=== PATIENT | female | born 1955 | race African-American/Black ===

== ENCOUNTER → 2017-03-08 | Outpatient (CLI) | payer BC, OTHER ==
[~2017-03-08] MED LIST: GLIPIZIDE ER10 MG PO; GLUCOPHAGE1000 MG PO; GLUCOTROL5 MG; HYDROCODONE-AP1 EAC6 PO; IBUPROFEN 600600 M1 PO; PRAVASTATIN SOD40 MG PO; PRINZIDE 20-121 EACH; PROVENTIL HFA6.7 G1 INH; QNASL8.7 GM INH; QVAR HFA 440 MCG/UN1; ZESTORETIC 20-1 EAC3 PO
== END ==
LOC: RAD 08:33
DX: Z12.31 Encounter for screening mammogram for malignant neoplasm of breast (principal)

== ENCOUNTER → 2018-06-19 | Outpatient (CLI) | payer BC, OTHER | LOC: RAD 14:19 | DX: Z12.31 Encounter for screening mammogram for malignant neoplasm of breast (principal) ==

== ENCOUNTER → 2018-06-26 | Outpatient (CLI) | payer BC, OTHER | LOC: RAD 01:18 | DX: N63.13 Unspecified lump in the right breast, lower outer quadrant (principal); R92.0 Mammographic microcalcification found on diagnostic imaging of breast ==

== ENCOUNTER → 2018-07-07 | Outpatient (CLI) | payer BC, OTHER ==
[2018-07-07 12:55] LABS: CREATININE 1.2 mg/dL (0.6-1.0)
== END ==
LOC: MRI 10:03
PROVIDERS: Internal Medicine Interventional Cardiology
DX: C50.511 Malignant neoplasm of lower-outer quadrant of right female breast (principal); N63.23 Unspecified lump in the left breast, lower outer quadrant

== ENCOUNTER 2018-09-19 05:21 | Day surgery (SDC) | payer BC ==
[~2018-09-19] VITALS: Ht 152.4 cm; Wt 86.2 kg
[~2018-09-19 05:21] MED LIST changes: +AMLODIPINE BESY10 MG PO; +BASAGLAR K100 UNIT/1 SUBQ; +HAIR, SKIN & N1 EAC2 PO; +HUMALOG KW200 UNIT/1 SUBQ; +LISINOPRIL10 MG PO; +PRAVASTATIN SOD80 MG PO; +UNICOMPLEX M TA1 TA1 PO; +VITAMIN D1000 UNI1 PO
[2018-09-19 11:18] LABS: CALCIUM 10.1 mg/dL (8.5-10.1); CREATININE 0.8 mg/dL (0.6-1.0); POTASSIUM 3.9 mmol/L (3.5-5.1)
[2018-09-19 11:24] LABS: ALBUMIN 3.8 g/dL (3.4-5.0); TOTAL BILIRUBIN 0.4 mg/dL (<0.1-1.0); TOTAL PROTEIN 8.2 g/dL (6.4-8.2)
[2018-09-19 12:30] VITALS: BP 162/90
[2018-09-19] MEDS ORDERED: NORCO 5-325 TA1 EACH PO (13:48)
[2018-09-19 14:12] VITALS: BP 162/90
--- NOTE | 2018-10-18 12:06 | H ---
[facility] [address] HISTORY AND PHYSICAL Name: HUDSON LINTON Room #: DEP [facility]..#: [id number] Admission: 09/19/18 ������������������ Attend Phys: Ilir Mehta MD Discharge: 09/19/18 ������������������ Date of : 59 Report #: [id number] THIS REPORT FOR: //name// CC: Ilir Hickman PREOPERATIVE DIAGNOSIS: Recently diagnosed right breast cancer, here for Port-A-Cath placement to facilitate chemotherapy. HISTORY OF PRESENT ILLNESS: The patient is a 63-year-old who was recently diagnosed with multifocal right breast cancer with lymph node involvement. The patient had 4/17 lymph nodes involved. She is stage T2 N2. The patient is recommended to undergo chemotherapy. She is here for port placement. 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 Multifocal disease. She had several tumors in the breast. This was seen on preoperative MRI. PAST MEDICAL HISTORY: The patient has a history of high blood pressure, diabetes type 2, stage 3 chronic kidney disease, anemia history. Moderate obesity. MEDICATIONS: Amlodipine, insulin 10 units, lisinopril, pravastatin. ALLERGIES: She is not allergic to anything. FAMILY HISTORY: No family history of cancer. SOCIAL HISTORY: The patient does not smoke, does not drink. REVIEW OF SYSTEMS: The patient has recovered well from the breast surgery. She did have reconstruction. No shortness of breath, chest pain, palpitations, numbness, weakness. PHYSICAL EXAMINATION: GENERAL: Elderly female in no acute distress. HEENT: Pupils react to light. Extraocular muscles are intact. NECK: Soft and supple, no masses. Breast is healing well. No swelling in the extremity. LUNGS: Clear to auscultation. HEART: Regular rate and rhythm. No murmur or gallop. ABDOMEN: Soft, nondistended, nontender. EXTREMITIES: No cyanosis, clubbing or edema. NEUROLOGIC: Motor and sensory exam normal. IMPRESSION: The patient is a 63-year-old with a recently diagnosed right breast [facility] [address] [place] [address] HISTORY AND PHYSICAL Name: HUDSON LINTON Alexey Room #: DEP [facility]..#: [id number] Admission: 09/19/18 ������������������ Attend Phys: Ilir Mehta MD Discharge: 09/19/18 ������������������ Date of : 59 Report #: [id number] cancer. She is here for a right Port-A-Cath placement. We will place it on the left subclavian site. The patient does have fairly advanced disease with multifocality, node positive. The patient will undergo Port-A-Cath placement. Procedure is discussed. Risk of bleeding, infection, vein, clot and vein thrombosis, pneumothorax was discussed. The patient wishes to proceed. ��������������������������������������������� <ELECTRONICALLY SIGNED> ���������������������������������������� By: Ilir Mehta MD ��������������������������������������������� 10/18/18 1206 0918 8 Ilir Mehta MD /cammy
--- NOTE | 2018-10-18 12:07 | O ---
[facility] [address] OPERATIVE REPORT Name: HUDSON LINTON Room #: DEP [facility]..#: [id number] Admission: 09/19/18 ������������������ Attend Phys: Ilir Mehta MD Discharge: 09/19/18 ������������������ Date of : 59 Report #: [id number] THIS REPORT FOR: //name// CC: Ilir Hickman MD DATE OF SERVICE: 09/19/2018 PREOPERATIVE DIAGNOSIS: Recently diagnosed right breast cancer, needs chemotherapy, here for Port-A-Cath placement to facilitate chemotherapy. POSTOPERATIVE DIAGNOSIS: Recently diagnosed right breast cancer, needs chemotherapy, here for Port-A-Cath placement to facilitate chemotherapy. PROCEDURE PERFORMED: Placement of Port-A-Cath via left subclavian approach. ANESTHESIA: IV sedation with 0.25% Marcaine. SURGEON: Ilir Mehta M.D. COMPLICATIONS: None. ESTIMATED BLOOD LOSS: 5 mL PROCEDURE NOTE: With the patient under IV sedation, timeout was performed. The left chest and neck was prepped and draped in sterile fashion. Preoperative IV antibiotic was administered. Marcaine 0.25% was used to anesthetize the skin underneath the clavicle. A skin incision about 2.5 cm was made underneath the left clavicle. Dissection was carried down to the pectoralis fascia. Pocket was made inferiorly over the pectoralis fascia. The port looked like is set in the pocket well. The patient was placed in Trendelenburg position. The left subclavian vein was found on the second attempt. Wire was placed without difficulty. On fluoroscopy, the wire was down into the superior vena cava in the right direction. The patient was then taken out of Trendelenburg. The port was then attached to the catheter. The length of the catheter was approximately 19 cm in length. The catheter was fitted to the port, locked in place with a special locking plastic device. The port and the catheter were flushed without difficulty. Dilator was then placed over the wire. Peel-Apart sheath was then placed over the dilator. The Peel-Apart sheath and the dilator were then placed over the wire without difficulty. The wire and dilator were removed. The catheter was then placed inside the Peel-Apart sheath. The sheath was peeled apart leaving the catheter into the vein. The port was then placed inside the pocket. Antibiotic irrigation was performed. Fluoroscopy showed good placement. The port was sewn to the fascial level with 2-[address] [facility] [place] [address] [place] [address] OPERATIVE REPORT Name: HUDSON LINTON Room #: DEP [facility]#: [id number] Admission: 09/19/18 ������������������ Attend Phys: Ilir Mehta MD Discharge: 09/19/18 ������������������ Date of : 59 Report #: [id number] Subcutaneous tissue was closed with 3-0 PDS. Skin was closed with 5-0 PDS. The port was accessed. I did have difficulty drawing blood from it. I tried couple attempts, pretty sure it was in the port. I decided to go ahead and open the wound up. It turned out at the port junction to the catheter must have been kinked. I went ahead and removed the port from the pocket and then in enlarged the pocket dissecting it inferiorly. This allowed the port to sit a little further distance away from the catheter entrance underneath the clavicle. The port was then sewn to the fascia with 2-0 Prolene. Antibiotic irrigation was performed. Subcutaneous was closed with 3-0 PDS. Skin was closed with 5-0 PDS. The port was then accessed. Johns needle was used. At this time, the blood was able to be drawn into the syringe. The port also flushed easily. The needle was then removed. Steri-Strip, Telfa, OpSite used for dressing. The patient was awakened and taken to recovery room. ��������������������������������������������� <ELECTRONICALLY SIGNED> ���������������������������������������� By: Ilir Mehta MD ��������������������������������������������� 10/18/18 1207 2133 Ilir Mehta MD /nt
== END 2018-09-19 15:45 | disposition home or self-care (01) ==
LOC: OR 05:21 → TBA 05:22 → OR 11:17
PROVIDERS: Surgery
DX: Z45.2 Encounter for adjustment and management of vascular access device (principal); C50.911 Malignant neoplasm of unspecified site of right female breast; I12.9 Hypertensive chronic kidney disease with stage 1 through stage 4 chronic kidney disease, or unspecified chronic kidney disease; E11.22 Type 2 diabetes mellitus with diabetic chronic kidney disease; N18.3 Chronic kidney disease, stage 3 (moderate); E78.5 Hyperlipidemia, unspecified; J45.909 Unspecified asthma, uncomplicated; D64.9 Anemia, unspecified; E66.01 Morbid (severe) obesity due to excess calories; Z79.899 Other long term (current) drug therapy; Z79.4 Long term (current) use of insulin; Z68.37 Body mass index [BMI] 37.0-37.9, adult; Z98.890 Other specified postprocedural states
CPT/HCPCS: 50010; 50101; 50386; 50403; 51938; 56524; 56525; 62110; 62850; 70005

== ENCOUNTER 2019-11-29 19:10 | Inpatient (IN) | payer OTHER ==
[~2019-11-29] VITALS: Ht 152.4 cm; Wt 85.7 kg
[~2019-11-29 19:10] MED LIST changes: +NORCO 5-325 TA1 EACH PO
[2019-11-29 19:18] VITALS: BP 179/120
[2019-11-29] MEDS ORDERED: CRESTOR40 MG PO (19:34)
[2019-11-29] MEDS ORDERED: ARIMIDEX PO (19:35)
[2019-11-29] MEDS ORDERED: ZESTRIL20 MG PO (19:38)
[2019-11-29] MEDS ORDERED: CARVEDILOL25 MG PO (19:40)
[2019-11-29] MEDS ORDERED: NOVOLOG FL100 UNIT/M SUBQ (19:43)
[2019-11-29 21:00] LABS: ABSOLUTE NEUTROPHILS 3.9 thou/uL (1.4-8.2); EOSINOPHILS 2.4 % (0.0-3.0); HEMATOCRIT 41.5 % (37.0-47.0); HEMOGLOBIN 13.9 gm/dL (12.0-15.0); LYMPHOCYTES 32.3 % (24.0-44.0); MCH 27.5 pg (26.0-34.0); MCHC 33.5 g/dL (28.0-37.0); MCV 81.9 fL (80.0-100.0); MONOCYTES 6.9 % (1.0-8.0); PLATELET COUNT 230 thou/uL (150-400); POLYS 57.4 % (36.0-66.0); RBC 5.07 mil/uL (4.20-5.00); RDW 14.6 % (10.5-14.5); WBC 6.8 thou/uL (4.0-11.0)
[2019-11-29 21:10] LABS: CALCIUM 9.8 mg/dL (8.5-10.1); POTASSIUM 4.1 mmol/L (3.5-5.1)
[2019-11-29 21:20] LABS: MAGNESIUM 1.8 mg/dL (1.8-2.4); TROPONIN-I 0.07 ng/mL (<0.06)
[2019-11-29 23:16] VITALS: BP 165/118
[2019-11-30] VITALS (7 sets, daily range): BP systolic 133–192; BP diastolic 86–139
[2019-11-30 03:48] LABS: HEMOGLOBIN 13.9 gm/dL (12.0-15.0); MCH 27.3 pg (26.0-34.0); MCHC 33.2 g/dL (28.0-37.0); MCV 82.3 fL (80.0-100.0); RBC 5.1 mil/uL (4.20-5.00); RDW 14.6 % (10.5-14.5); WBC 6.5 thou/uL (4.0-11.0)
--- NOTE | 2019-11-30 04:03 | NUR ---
RECEIVED PATIENT AROUND 0300. PT STATED STABILITY AND ABSCENCE OF PAIN. PT WAS COUGHIN QUITE A BIT, NON PRODUCTIVELY. PT WAS ABLE TO AMBULATE SELF BACK AND FORTH WITH SOA. MOBILITY SHOULD BE MONITORED SHIFT BY SHIFT TO ADJUST DEPENDING ON SOA STATUS. PT'S BP WAS HIGH, CARVEDILOL, LISINOPRIL ADMINISTERED. PT PHONE DELIVERED BY ED SECURITY. IV WAS INFILTRATED UPON ARRIVAL SO NEW ONE WAS PLACED. PT WANTED TO SHOWER SO BED BATH SUPPLIES WERE PROVIDED. NO COMPLAINTS AT THIS TIME. WILL FOLLOW POC
[2019-11-30 04:04] LABS: CALCIUM 9.5 mg/dL (8.5-10.1); CREATININE 0.9 mg/dL (0.6-1.0); TROPONIN-I 0.09 ng/mL (<0.06)
--- NOTE | 2019-11-30 07:42 | EKG ---
[facility] [place] [address] ELECTROCARDIOGRAM REPORT Name: HUDSON LINTON Room #: 356-P ADM IN M.R.#: [id number] Admission: 11/29/19 Attend Phys: Piotr Minor MD Discharge: Date of : 59 Report #: [id number] THIS REPORT FOR: cc: Alvarez Hickman Steven F. DO Couchonnal, Luis F. 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 : 1955 Requested By: Greg Patrick Order Number: [id number] MD: Misha Kaye Measurements Intervals [place] Rate: 90 P: 45 WY: 159 QRS: -20 QRSD: 102 T: 61 QT: 411 QTc: 503 Interpretive Statements Sinus rhythm Probable left ventricular hypertrophy Prolonged QT interval Compared to ECG 04/16/2015 01:47:35 Prolonged QT interval now present T-wave abnormality no longer present Electronically Signed On 11-30-2019 7:41:18 CDT by Misha Kaye [email or web address] <ELECTRONICALLY SIGNED> By: Misha Kaye MD 11/30/19 0741 08 08 Misha Kaye MD /EPI
--- NOTE | 2019-11-30 12:01 | NUR ---
INITIAL ASSESSMENT: SW reviewed chart and spoke with nursing and attending physician. Pt was admitted from home due to dyspnea/pneumonia. Pt is currently in Enhanced Isolation to r/o COVID-19. SW spoke with pt via phone. Introduced role of SW. Pt is alert/orientated x 4. Pt reports she lives at home with her . 2-3 steps to enter the home. Pt states she has several steps to go downstairs in the basement to do laundry. Pt is able to navigate the steps. Prior to admission, pt was independent with ADLs. No use of DME. No hx of services or post-acute placement. Pt's PCP is Dr. Hickman. Plan is for pt to discharge home when medically stable pending COVID-19 results. SW is following to assist as needed with discharge planning.
--- NOTE | 2019-11-30 19:02 | NUR ---
Assumed patient care at 0715. Vital signs have been stable except for blood pressures and blood sugars; both of this have been in higher ranges without patient being symptomatic. Patient has been alert and oriented x's 4. She took a shower with stand-by assitance this afternoon. No shortness of breath noted. Patient noted to have a non-productive cough this evening. Respiratory Therapy contacted for Treatment. Patient has been up ad osmin to use the restroom, although she has been reminded to call nurse for stand-by assist. She is compliant with wearing her SCD's and all medications/treatments. No adverse effects related to IV Antibiotic Therapy. Will report to on-coming nurse.
--- NOTE | 2019-12-01 04:26 | NUR ---
Assumed pt care at 1900. Pt's A/OX4,VSS. Pt transferred by nurse from 3W @2200 via bed. Pt is up ad osmin and independent with ADLs. Denies pain on assessment. Does have a non productive cough,informed sputum cx still needed. LSCTA, denies SOA, HOB up. Pt started on Doxycycline IV @HS,c/o burning feeling rate turned down but pt reported she's never felt like that before and requested it be stopped completely and MD contacted for PO abts. IV not infiltrated and flushes w/o any complaints. Nona Alfaro notified of pt request,N.N.O stated that it will be addressed by the day MD. Resting quietly at this time w/o any distress noted,will continue to monitor pt. Call light/personal items within reach.
[2019-12-01 05:45] VITALS: BP 146/100
[2019-12-01 06:30] LABS: ABSOLUTE NEUTROPHILS 9.6 thou/uL (1.4-8.2); BASOPHILS 0.1 % (0.0-2.0); HEMATOCRIT 39.8 % (37.0-47.0); HEMOGLOBIN 13.1 gm/dL (12.0-15.0); LYMPHOCYTES 7.2 % (24.0-44.0); MCH 27.2 pg (26.0-34.0); MCV 82.5 fL (80.0-100.0); MONOCYTES 4.5 % (1.0-8.0); PLATELET COUNT 209 thou/uL (150-400); POLYS 88.2 % (36.0-66.0); RBC 4.82 mil/uL (4.20-5.00); RDW 14.5 % (10.5-14.5); WBC 10.9 thou/uL (4.0-11.0)
[2019-12-01 06:50] LABS: ANION GAP 10 mmol/L (7-16); BUN 28 mg/dL (7-18); CHLORIDE 99 mmol/L (98-107); CO2 24 mmol/L (21-32); CREATININE 1.1 mg/dL (0.6-1.0); GLUCOSE 335 mg/dL (74-106); MAGNESIUM 1.8 mg/dL (1.8-2.4); POTASSIUM 4.2 mmol/L (3.5-5.1); SODIUM 133 mmol/L (136-145); TROPONIN-I <0.06 ng/mL (<0.06)
[2019-12-01 07:20] VITALS: BP 154/100
--- NOTE | 2019-12-01 09:38 | 2DMMODE ---
[facility] [place] [address] 2 D/M-MODE ECHOCARDIOGRAM Name: HUDSON LINTON Alexey Room #: 439-P ADM IN M.R.#: [id number] Admission: 11/29/19 Attend Phys: Piotr Minor MD Discharge: Date of : 59 Report #: [id number] THIS REPORT FOR: cc: Alvarez Hickman,Alvarez Valdes,Anton Rebollar MD ~ APPROVED REPORT Study performed: 12/01/2019 08:41:18 EXAM: Comprehensive 2D, Doppler, and color-flow Echocardiogram Patient Location: Echo lab Room #: 439 Status: routine BSA: 1.83 HR: 90 bpm BP: 154/100 mmHg Rhythm: NSR Other Information Study Quality: Excellent Indications Dyspnea, rule out CHF. Hx: Cancer, HTN, HLP, DM. 2D Dimensions RVDd: 37.16 mm IVSd: 11.00 (7-11mm) LVOT Diam: 19.02 (18-24mm) LVDd: 58.00 mm PWd: 11.01 (7-11mm) Ascending Ao: 30.88 (22-36mm) LVDs: 50.85 (25-40mm) Aortic Root: 29.05 mm Volumes Left Atrial Volume (Systole) Single Plane 4CH: 71.53 mL Single Plane 2CH: 63.61 mL LA ESV Index: 39.00 mL/m2 Aortic Valve AoV Peak Landry.: 1.81 m/s AO Peak Gr.: 13.15 mmHg LVOT Max P.64 mmHg AO Mean Gr.: 7.75 mmHg AO V2 Mean: 1.35 m/s LVOT Max V: 0.95 m/s [facility] [address] [place] [address] 2 D/M-MODE ECHOCARDIOGRAM Name: HUDSON LINTON Alexey Room #: 439[facility] IN ..#: [id number] Admission: 11/29/19 Attend Phys: Piotr Minor MD Discharge: Date of : 59 Report #: [id number] AO V2 VTI: 33.09 cm RICKEY Vmax: 1.50 cm2 Mitral Valve E/A Ratio: 2.6 MV Decel. Time: 133.51 ms MV E Max Landry.: 1.13 m/s MV A Landry.: 0.43 m/s MV PHT: 38.72 ms IVRT: 76.12 ms Pulmonary Valve PV Peak Landry.: 0.63 m/s PV Peak Gr.: 1.61 mmHg Pulmonary Vein P Vein S: 0.57 m/s P Vein D: 0.99 m/s P Vein S/D Ratio: 0.58 Tricuspid Valve TR Peak Landry.: 2.94 m/s RAP Estimate: 10.00 mmHg TR Peak Gr.: 35.00 mmHg PA Pressure: 45.00 mmHg Left Ventricle Left ventricle is mildly dilated. There is global hypokinesis of the left ventricle. Borderline concentric left ventricular hypertrophy. Left ventricular systolic function is severely decreased. LVEF is 25%. Severe diastolic dysfunction is present (restrictive filling). Right Ventricle The right ventricle is normal size. Right ventricle is mildly hypokinetic. Atria Left atrium is moderately dilated. Right atrium is mildly dilated. Aortic Valve The aortic valve is normal in structure. Leaflets are mildly thickened and calcified. No aortic regurgitation is present. Probable mild aortic stenosis. Mitral Valve The mitral valve is normal in structure. Mild mitral regurgitation. [facility] [address] [place] [address] 2 D/M-MODE ECHOCARDIOGRAM Name: HUDSON LINTON Room #: 439-P ADM IN .R.#: [id number] Admission: 11/29/19 Attend Phys: Piotr Minor MD Discharge: Date of : 59 Report #: [id number] No evidence of mitral valve stenosis. Tricuspid Valve The tricuspid valve is normal in structure. Mild to moderate tricuspid regurgitation. Estimated PAP is 45mmHg. Pulmonic Valve The pulmonary valve is normal in structure. Mild pulmonic regurgitation. Great Vessels The aortic root is normal in size. The ascending aorta is normal in size. IVC is dilated and collapses <50% with inspiration. Pericardium There is no pericardial effusion. <Conclusion> Left ventricle is mildly dilated. Left ventricular systolic function is severely decreased. LVEF is 25%. Severe diastolic dysfunction is present (restrictive filling). Right ventricle is mildly hypokinetic. Left atrium is moderately dilated. Probable mild aortic stenosis. Mild mitral regurgitation. Mild to moderate tricuspid regurgitation. Estimated PAP is 45mmHg. <ELECTRONICALLY SIGNED> By: Anton Kong MD 12/01/1935 Anton Kong MD /INF
[2019-12-01 15:10] VITALS: BP 138/84
--- NOTE | 2019-12-01 16:09 | NUR ---
IT IS ANTICIPATED THAT PT WILL BE ABLE TO DISCHARGE HOME TO SELF CARE ONCE MEDICALLY STABLE. CM TO FOLLOW SHOULD ANY DC NEEDS ARISE.
[2019-12-01 19:00] VITALS: BP 134/92
--- NOTE | 2019-12-01 19:31 | NUR ---
Assumed care of pt at 0700. Pt a&ox4. Up ad osmin. Denies pain. Pt states she feels burning when antibiotic is infusing. Pt's blood sugar not controlled. Provider aware. Left chest port accessed. Director Of Residential Services consulted. Call light within reach. Report given to virgie QUEVEDO.
[2019-12-02 01:07] LABS: GLYCOHEMOGLOBIN (HGB A1C) 7.8 % (4.8-5.6)
--- NOTE | 2019-12-02 04:29 | NUR ---
Assumed pt care at 1900. A/OX4, VSS. Up ad osmin w/o any difficulties voiced. Denied pain on assessment. Pt has a left chest port a cath which is patent. Resting quietly w/o any distress noted at this time, will continue to monitor pt. Call light/personal items within reach.
[2019-12-02 04:47] LABS: CALCIUM 9.3 mg/dL (8.5-10.1); CREATININE 0.9 mg/dL (0.6-1.0)
[2019-12-02 05:06] LABS: HEMOGLOBIN 12.6 gm/dL (12.0-15.0); MCH 27.3 pg (26.0-34.0); MCHC 33.1 g/dL (28.0-37.0); MCV 82.6 fL (80.0-100.0); RBC 4.6 mil/uL (4.20-5.00); RDW 14.6 % (10.5-14.5); WBC 13.6 thou/uL (4.0-11.0)
[2019-12-02 08:30] VITALS: BP 142/93
[2019-12-02 15:15] VITALS: BP 123/74
--- NOTE | 2019-12-02 15:42 | NUR ---
CARE TEAM INDICATED THAT PT IS PROGRESSING TOWARD GOAL OF DISCHARGE. IT IS ANTICIPATED THAT PT WILL HAVE NO NEEDS ONCE MEDICALLY STABLE TO DISCHARGE.
--- NOTE | 2019-12-02 19:31 | NUR ---
Assumed pt care this am, pt is up ad osmin and coco to ambualte from bed to toilet with a steady gait. Blood sugar checks done with corresponding insulin given as per emar. Left chest port accessed and patent. Pt has a bm today and statinh prune juice helped. Pain on her little finger on the left was managed with medication. POC followed, medication and diet are well tolerated. No signs or verbalizatons of distress have been noted. Endorsed to the night nurse.
[2019-12-02 20:10] VITALS: BP 126/79
--- NOTE | 2019-12-03 05:47 | NUR ---
Assumed pt care at 1900. A/OX4, VSS. Up ad osmin w/o distress. Denies pain on assessment. Pt had a shower at without any issues reported. Left chest port patent. Pt encouraged to call for help as needed. Call light/personal items within reach.
[2019-12-03 07:52] VITALS: BP 149/99
--- NOTE | 2019-12-03 10:23 | HC ---
[facility] [place] [address] CONSULTATION Name: HUDSON LINTON Room #: 439-P ADM IN M.R.#: [id number] Admission: 11/29/19 Attend Phys: Piotr Minor MD Discharge: Date of : 59 Report #: [id number] THIS REPORT FOR: cc: Alvarez Hickman,Ginette Carrasco MD ~ CC: Piotr Hickman DATE OF SERVICE: 12/01/2019 ENDOCRINE CONSULTATION NOTE CONSULTING PHYSICIAN: Dr. Jamil. REASON FOR CONSULTATION: Uncontrolled type 2 diabetes mellitus. HISTORY OF PRESENT ILLNESS: This is a 64-year-old female patient whose medical background is significant for type 2 diabetes mellitus, hypertension, hyperlipidemia as well as breast cancer. The patient presented 2 days ago after progressive shortness of breath, tiredness and fatigue. The patient was admitted for the issue of pneumonia and ruled out for COVID-19. She is known to have type 2 diabetes mellitus and was diagnosed first about 5 years ago. She is currently maintained on a regimen of Lantus insulin 20 units q.p.m. and Humalog insulin 7 units t.i.d. a.c. She reports that her blood glucose values are typically in the mid to high 100 mg/dL range with infrequent excursions over 200 mg/dL. She does not have frequent or severe hypoglycemia that she recalls. The patient is not known to have diabetic retinopathy, but does have intermittent difficulties with numbness and tingling in both hands and feet. She believes she has a degree of renal insufficiency, but is not aware of issues pertaining to coronary artery disease. The patient's past medical history is also noted for hypertension and hyperlipidemia. REVIEW OF SYSTEMS: CONSTITUTIONAL: Fatigue, tiredness, but no fever or chills or body weight changes. HEENT: Negative for sore throat, sinus pain or ear drainage. PULMONARY: Shortness of breath, cough, but not hemoptysis. CARDIAC: Negative for chest pain, palpitations, syncope or presyncope. GASTROINTESTINAL: Negative for abdominal pain, nausea, vomiting or changes in bowel movement frequency. NEUROLOGY: Negative for loss of consciousness, seizure activity or frequent severe headaches, but noted for baseline diabetic neuropathy. [address] [address] CONSULTATION Name: HUDSON LINTON Alexey Room #: 439-P [facility] IN ..#: [id number] Admission: 11/29/19 Attend Phys: Piotr Minor MD Discharge: Date of : 59 Report #: [id number] PSYCHIATRIC: Negative for delusions or hallucinations, otherwise review of systems noncontributory other than those mentioned in HPI. PAST MEDICAL HISTORY: 1. Type 2 diabetes mellitus as noted above. 2. Hypertension. 3. Hyperlipidemia. 4. Breast cancer diagnosed in 2018, status post chemotherapy, status post radiation therapy. 5. Osteoarthritis. OUTPATIENT MEDICATIONS: Include Lantus insulin 20 units q.p.m., Humalog insulin 7 units t.i.d. a.c., lisinopril 10 mg daily, pravastatin 80 mg daily, amlodipine 10 mg daily, multivitamin daily, Arimidex which was held off a few weeks ago, carvedilol 25 mg b.i.d. ALLERGIES: No known drug allergies. FAMILY HISTORY: Noncontributory. SOCIAL HISTORY: She is . She has 7 children. Denies use of tobacco, alcohol or illicit drugs. She has recently retired. PHYSICAL EXAMINATION: GENERAL: Pleasant -Northern Irish female patient who is not in apparent pain or distress. VITAL SIGNS: Blood pressure is 154/100 mmHg, heart rate is 90 beats per minute, respirations 18 per minute, temperature is 36.4 degrees. CONSTITUTIONAL: The patient is lying in bed comfortably, not in apparent distress. HEENT: Anicteric sclerae. Intact extraocular motions. NECK: Supple, without JVD, carotid bruits or lymphadenopathy. I do not appreciate thyromegaly. CHEST: Noted for moderate air entry bilaterally with scattered rales. HEART: Regular rate and rhythm without murmurs or gallops. ABDOMEN: Soft, lax. No guarding. Active bowel sounds. EXTREMITIES: Lower extremity exam is noted for trace ankle edema bilaterally, but no skin breaks or ulcerations. Pedal pulses are appreciated. NEUROLOGIC: Awake, alert and oriented to time, place and person. The remainder of her examination is nonfocal. PSYCHIATRIC: Pleasant, interactive. Normal mood and affect. LABORATORY DATA: Blood glucose on arrival was 285 and has been consistently over 350 mg/dL for the past 24 hours. Sodium 133, potassium 4.2, chloride 99, CO2 of 24, anion gap 10, BUN 28, creatinine 1.1, lipase 87, AST 17, total bilirubin 0.4, calcium 10, magnesium 1.8, alkaline phosphatase 103, ALT 29, [facility] [address] [place] [address] CONSULTATION Name: HUDSON LINTON Room #: 439-P [facility] IN MJob.#: [id number] Admission: 11/29/19 Attend Phys: Piotr Minor MD Discharge: Date of : 59 Report #: [id number] total protein 8.2, albumin 3.8, EGFR 62. BNP 3268. White blood count 10.9, hemoglobin 13.1, hematocrit 39.8, platelets 209. ASSESSMENT AND PLAN: 1. Type 2 diabetes mellitus. The patient reports a reasonable level of control at baseline as per her reported blood glucose values. I will assess this further with a hemoglobin A1c. The patient has an acute severe worsening of her glycemic control in the setting of acute illness as well as the use of high dose glucocorticoid therapy, currently received as Solu-Medrol 40 mg q. 8 hours IV. I will adjust her insulin therapy to accommodate this worsening and will raise her Humalog insulin dosage to 16 units t.i.d. a.c. and her Lantus insulin to 32 units at night. Furthermore, her Humalog supplemental scale will be raised to moderate intensity. Blood glucose monitoring will continue a.c. and at bedtime and further therapeutic adjustments will be made accordingly. 2. Hyperlipidemia. The patient is maintained on atorvastatin therapy and tolerates it well, she is to continue with the same. 2. Hypertension. The patient is maintained on a combination of carvedilol, lisinopril and furosemide, with blood pressure control mostly in reasonable range. She is to continue with the same. 3. Pneumonia. The patient is currently receiving therapy with bronchodilators as well as Levaquin. I certainly appreciate this consultation by Dr. Jamil. <ELECTRONICALLY SIGNED> By: Ginette Pradhan MD 12/03/19 1023 1605 1707 Ginette Pradhan MD /cammy
[2019-12-03] MEDS ORDERED: PREDNISONE 10 M10 MG PO (13:12)
[2019-12-03] MEDS ORDERED: LEVAQUIN 750 M750 MG PO (13:12)
--- NOTE | 2019-12-03 13:38 | NUR ---
CARE TEAM INDICATED THAT PT IS MEDICALLY STABLE TO DISHCARGE HOME THIS DAY. PT IS TO DISCHARGE HOME TO SELF CARE. NO OTHER CM INTERVENTION ANTICPATED. CASE CLOSED.
[2019-12-03 13:53] VITALS: BP 149/99
--- NOTE | 2019-12-03 16:14 | NUR ---
Assumed pt care this am, VS have been stable. diet and medications are well tolerated. DC insructions and prescriptions given, IV chest port deaccessed. Pt is now dc and drove herself home.
== END 2019-12-03 15:12 | disposition home or self-care (01) | DRG 195 ==
LOC: ER 19:10 → 4S 22:58 → 3W 22:58 → EROBS 22:58 → 3W 11-30 00:32 → 4S 11-30 23:14
PROVIDERS: Emergency Medicine; Internal Medicine; Nurse Practitioner Family; ADMIT Internal Medicine
DX: J18.9 Pneumonia, unspecified organism (principal); J45.909 Unspecified asthma, uncomplicated; E11.9 Type 2 diabetes mellitus without complications; I10 Essential (primary) hypertension; E78.5 Hyperlipidemia, unspecified; M19.90 Unspecified osteoarthritis, unspecified site; Z20.828 Contact with and (suspected) exposure to other viral communicable diseases; Z90.11 Acquired absence of right breast and nipple; Z85.3 Personal history of malignant neoplasm of breast
CPT/HCPCS: 10195

== ENCOUNTER 2020-02-28 06:51 | Emergency (ER) | payer OTHER ==
[~2020-02-28] VITALS: Ht 152.4 cm; Wt 86.2 kg
[~2020-02-28 06:51] MED LIST changes: +ARIMIDEX PO; +CARVEDILOL25 MG PO; +CRESTOR40 MG PO; +LEVAQUIN 750 M750 MG PO; +NOVOLOG FL100 UNIT/M SUBQ; +PREDNISONE 10 M10 MG PO; +ZESTRIL20 MG PO
[2020-02-28] MEDS ORDERED: CRESTOR40 MG PO (07:12)
[2020-02-28] MEDS ORDERED: ARIMIDEX1 MG PO (07:12)
[2020-02-28 08:06] LABS: ABSOLUTE NEUTROPHILS 4.2 thou/uL (1.4-8.2); BASOPHILS 0.7 % (0.0-2.0); HEMATOCRIT 42.3 % (37.0-47.0); HEMOGLOBIN 14.3 gm/dL (12.0-15.0); LYMPHOCYTES 27.4 % (24.0-44.0); MCH 28.2 pg (26.0-34.0); MCHC 33.9 g/dL (28.0-37.0); MCV 83.1 fL (80.0-100.0); MONOCYTES 7.6 % (1.0-8.0); PLATELET COUNT 198 thou/uL (150-400); POLYS 62.3 % (36.0-66.0); RBC 5.09 mil/uL (4.20-5.00); RDW 14.1 % (10.5-14.5); WBC 6.7 thou/uL (4.0-11.0)
[2020-02-28 08:12] LABS: CALCIUM 9.6 mg/dL (8.5-10.1); POTASSIUM 3.4 mmol/L (3.5-5.1)
[2020-02-28 08:21] LABS: TROPONIN-I 0.08 ng/mL (<0.06)
[2020-02-28 14:27] VITALS: BP 148/99
--- NOTE | 2020-02-29 07:57 | EKG ---
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 : 1955 Requested By: Greg Patrick Order Number: [id number] MD: Art Pierson Measurements Intervals [place] Rate: 107 P: 58 PA: 166 QRS: -15 QRSD: 103 T: 58 QT: 377 QTc: 503 Interpretive Statements Sinus tachycardia Left atrial enlargement Prolonged QT interval Compared to ECG 11/29/2019 21:09:24 T wave abnormalities no longer present Electronically Signed On 02-29-2020 7:57:02 CDT by Art Pierson [email or web address] <ELECTRONICALLY SIGNED> By: Art Pierson MD, [facility] 02/29/20 0757 2 Art Pierson MD, [facility] /EPI
== END 2020-02-28 14:41 | disposition home or self-care (01) ==
LOC: ER 06:51
PROVIDERS: Emergency Medicine
DX: R06.02 Shortness of breath (principal); Z20.828 Contact with and (suspected) exposure to other viral communicable diseases; R05 Cough; R53.1 Weakness; I10 Essential (primary) hypertension; E11.9 Type 2 diabetes mellitus without complications; Z85.3 Personal history of malignant neoplasm of breast; J45.909 Unspecified asthma, uncomplicated; E78.5 Hyperlipidemia, unspecified; Z98.890 Other specified postprocedural states; Z79.4 Long term (current) use of insulin; Z79.899 Other long term (current) drug therapy

== ENCOUNTER 2020-03-12 02:54 | Emergency (ER) | payer OTHER ==
[~2020-03-12] VITALS: Ht 152.4 cm; Wt 86.2 kg
[~2020-03-12 02:54] MED LIST changes: +ARIMIDEX1 MG PO
[2020-03-12 04:28] LABS: URINE BILIRUBIN NEGATIVE (Negative); URINE BLOOD TRACE (Negative); URINE CLARITY CLEAR; URINE COLOR YELLOW; URINE GLUCOSE-RANDOM* 2+ (Negative); URINE KETONES NEGATIVE (Negative); URINE LEUKOCYTES-REFLEX NEGATIVE (Negative); URINE NITRITE-REFLEX NEGATIVE (Negative); URINE PROTEIN (DIPSTICK) 2+ (Negative); URINE SPECIFIC GRAVITY >= 1.030 (1.005-1.035); URINE UROBILINOGEN 0.2 E.U./dl (0.2-1.0)
[2020-03-12 04:44] LABS: BACTERIA-REFLEX None Seen /HPF (None Seen); CASTS None Seen /LPF (None Seen); CRYSTALS None Seen /LPF (None Seen); MUCUS 0-3 Light strn/LPF (None Seen); SQUAMOUS 0-3 Few /LPF (0-3); URINE RBC 0-2 Rare /HPF (0-2); URINE WBC-REFLEX 0-5 Rare /HPF (0-5)
[2020-03-12 04:58] LABS: ABSOLUTE NEUTROPHILS 4.1 thou/uL (1.4-8.2); EOSINOPHILS 2.1 % (0.0-3.0); HEMATOCRIT 41.2 % (37.0-47.0); HEMOGLOBIN 13.8 gm/dL (12.0-15.0); LYMPHOCYTES 21.4 % (24.0-44.0); MCH 28.2 pg (26.0-34.0); MCHC 33.5 g/dL (28.0-37.0); MCV 84.1 fL (80.0-100.0); PLATELET COUNT 216 thou/uL (150-400); POLYS 68.5 % (36.0-66.0); RBC 4.89 mil/uL (4.20-5.00); RDW 13.8 % (10.5-14.5)
[2020-03-12 05:09] LABS: ANION GAP 10 mmol/L (7-16); BUN 19 mg/dL (7-18); CHLORIDE 101 mmol/L (98-107); CO2 25 mmol/L (21-32); CREATININE 0.9 mg/dL (0.6-1.0); GLUCOSE 275 mg/dL (74-106); POTASSIUM 4.1 mmol/L (3.5-5.1); SODIUM 136 mmol/L (136-145)
[2020-03-12 05:17] LABS: TROPONIN-I <0.06 ng/mL (<0.06)
[2020-03-12] MEDS ORDERED: PREDNISONE 20 M20 MG PO (05:51)
[2020-03-12] MEDS ORDERED: AZITHROMYCIN500 MG PO (05:51)
[2020-03-12 06:18] VITALS: BP 160/116
--- NOTE | 2020-03-14 07:46 | EKG ---
[facility] [place] [address] ELECTROCARDIOGRAM REPORT Name: HUDSON LINTON Room #: [facility]#: [id number] Admission: 03/12/20 Attend Phys: Discharge: 03/12/20 Date of : 59 Report #: [id number] THIS REPORT FOR: cc: Alvarez Hickman,Art Mcbride MD [facility] THIS REPORT FOR: //name// [facility] ED Test Date: 2020-03-12 Test Time: 05:14:04 Pat Name: HUDSON LINTON Department: Room: Gender: F Heel Stiffener: DKENDRICK1 : 1955 Requested By: Nay Avalos Order Number: [id number] MD: Art Pierson Measurements Intervals [place] Rate: 89 P: 47 OR: 163 QRS: -11 QRSD: 101 T: 56 QT: 404 QTc: 492 Interpretive Statements Sinus rhythm Poor R wave progression Borderline prolonged QT interval Compared to ECG 02/28/2020 07:23:13 Sinus tachycardia no longer present Electronically Signed On 03-14-2020 7:46:09 CDT by Art Pierson [email or web address] <ELECTRONICALLY SIGNED> By: Art Pierson MD, [facility] 03/14/20 0746 0514 0514 Art Pierson MD, [facility] /EPI
== END 2020-03-12 06:23 | disposition home or self-care (01) ==
LOC: ER 02:54
PROVIDERS: Emergency Medicine
DX: J06.9 Acute upper respiratory infection, unspecified (principal); I10 Essential (primary) hypertension; E11.9 Type 2 diabetes mellitus without complications; J45.909 Unspecified asthma, uncomplicated; E78.5 Hyperlipidemia, unspecified; Z79.4 Long term (current) use of insulin; Z79.899 Other long term (current) drug therapy; Z91.09 Other allergy status, other than to drugs and biological substances

== ENCOUNTER 2020-03-28 05:01 | Emergency (ER) | payer OTHER ==
[~2020-03-28] VITALS: Ht 152.4 cm; Wt 86.2 kg
[~2020-03-28 05:01] MED LIST changes: +AZITHROMYCIN500 MG PO; +PREDNISONE 20 M20 MG PO
[2020-03-28] MEDS ORDERED: SINGULAIR 10 MG10 M1 PO (05:18)
[2020-03-28] MEDS ORDERED: ALBUTEROL0.63 MG/3 INH (05:19)
[2020-03-28 05:59] LABS: ABSOLUTE NEUTROPHILS 5.2 thou/uL (1.4-8.2); EOSINOPHILS 1.1 % (0.0-3.0); HEMATOCRIT 41.8 % (37.0-47.0); LYMPHOCYTES 22.1 % (24.0-44.0); MCH 28.3 pg (26.0-34.0); MCHC 33.4 g/dL (28.0-37.0); MCV 84.7 fL (80.0-100.0); MONOCYTES 10.8 % (1.0-8.0); PLATELET COUNT 203 thou/uL (150-400); RBC 4.93 mil/uL (4.20-5.00); RDW 14.5 % (10.5-14.5)
[2020-03-28 06:17] LABS: CALCIUM 9.2 mg/dL (8.5-10.1); CREATININE 0.9 mg/dL (0.6-1.0)
[2020-03-28 06:19] LABS: POTASSIUM 4.7 mmol/L (3.5-5.1)
[2020-03-28] MEDS ORDERED: LASIX 20 MG TAB20 MG PO (07:45)
[2020-03-28] MEDS ORDERED: LEVAQUIN 500 M500 M3 PO (07:45)
[2020-03-28 08:09] VITALS: BP 157/107
== END 2020-03-28 08:10 | disposition home or self-care (01) ==
LOC: ER 05:01
PROVIDERS: Emergency Medicine
DX: J45.901 Unspecified asthma with (acute) exacerbation (principal); I10 Essential (primary) hypertension; E11.9 Type 2 diabetes mellitus without complications; E78.5 Hyperlipidemia, unspecified; Z79.4 Long term (current) use of insulin; Z79.899 Other long term (current) drug therapy; Z91.09 Other allergy status, other than to drugs and biological substances

== ENCOUNTER → 2020-05-26 | Outpatient (CLI) | payer OTHER ==
[~2020-05-26] MED LIST changes: +ALBUTEROL0.63 MG/3 INH; +LASIX 20 MG TAB20 MG PO; +LEVAQUIN 500 M500 M3 PO; +SINGULAIR 10 MG10 M1 PO
== END ==
LOC: BC 14:01
PROVIDERS: ATTEND Internal Medicine Hematology & Oncology
DX: Z12.31 Encounter for screening mammogram for malignant neoplasm of breast (principal)

== ENCOUNTER 2020-07-09 23:21 | Emergency (ER) | payer OTHER ==
[~2020-07-09] VITALS: Ht 152.4 cm; Wt 87.1 kg
[2020-07-10 00:23] LABS: ABSOLUTE NEUTROPHILS 3.8 thou/uL (1.4-8.2); BASOPHILS 0.7 % (0.0-2.0); EOSINOPHILS 4.6 % (0.0-3.0); HEMATOCRIT 42.5 % (37.0-47.0); HEMOGLOBIN 13.9 gm/dL (12.0-15.0); LYMPHOCYTES 23.6 % (24.0-44.0); MCH 27.1 pg (26.0-34.0); MCHC 32.7 g/dL (28.0-37.0); MCV 82.7 fL (80.0-100.0); MONOCYTES 11.2 % (1.0-8.0); PLATELET COUNT 210 thou/uL (150-400); POLYS 59.9 % (36.0-66.0); RBC 5.14 mil/uL (4.20-5.00); RDW 15.8 % (10.5-14.5); WBC 6.3 thou/uL (4.0-11.0)
[2020-07-10 00:37] LABS: ANION GAP 10 mmol/L (7-16); BUN 16 mg/dL (7-18); CALCIUM 9.7 mg/dL (8.5-10.1); CHLORIDE 100 mmol/L (98-107); CO2 26 mmol/L (21-32); GLUCOSE 160 mg/dL (74-106); POTASSIUM 3.3 mmol/L (3.5-5.1); SODIUM 136 mmol/L (136-145)
[2020-07-10 00:43] LABS: TROPONIN-I <0.06 ng/mL (<0.06)
[2020-07-10] MEDS ORDERED: PREDNISONE 20 M20 MG PO (01:51)
[2020-07-10] MEDS ORDERED: TESSALON PERLE100 MG PO (02:40)
[2020-07-10 02:43] VITALS: BP 142/78
--- NOTE | 2020-07-11 07:12 | EKG ---
[facility] [place] [address] ELECTROCARDIOGRAM REPORT Name: HUDSON LINTON [id number] Admission: 07/09/20 Attend Phys: Discharge: 07/10/20 Date of : 59 Report #: [id number] THIS REPORT FOR: cc: Alvarez Hikcman,Prabhjot Fregoso MD [facility] THIS REPORT FOR: //name// [facility] ED Test Date: 2020-07-10 Test Time: 00:10:34 Pat Name: HUDSON LINTON Department: Room: Gender: F Reimbursement Spec: vik : 1955 Requested By: Greg Patrick Order Number: [id number] MD: Prabhjot Benites Measurements Intervals [place] Rate: 86 P: 48 ND: 175 QRS: -21 QRSD: 107 T: 51 QT: 401 QTc: 480 Interpretive Statements Sinus rhythm Ventricular premature complex Left atrial enlargement Left ventricular hypertrophy Compared to ECG 03/12/2020 05:14:04 Ventricular premature complex(es) now present Atrial abnormality now present Left ventricular hypertrophy now present Poor R-wave progression no longer present Electronically Signed On 07-11-2020 7:12:20 MATERIAL ENGINEER by Prabhjot Benites [email or web address] <ELECTRONICALLY SIGNED> By: Prabhjot Benites MD, FACC 07/11/20 0712 Prabhjot Benites MD, FAC /EPI
== END 2020-07-10 02:43 | disposition home or self-care (01) ==
LOC: ER 23:21
PROVIDERS: Emergency Medicine
DX: R05 Cough (principal); J45.909 Unspecified asthma, uncomplicated; I10 Essential (primary) hypertension; E11.9 Type 2 diabetes mellitus without complications; E78.5 Hyperlipidemia, unspecified; Z79.899 Other long term (current) drug therapy; Z79.4 Long term (current) use of insulin; Z91.09 Other allergy status, other than to drugs and biological substances; Z20.828 Contact with and (suspected) exposure to other viral communicable diseases

== ENCOUNTER → 2020-07-25 | Outpatient (CLI) | payer OTHER ==
[~2020-07-25] MED LIST changes: +ASA81BEC PO; +LIPITOR80 MG PO; +PLAVIX 75 MG TA75 M1 PO; +TESSALON PERLE100 MG PO; +TORSEMIDE20 MG PO
== END ==
LOC: LAB 07-22 15:10
PROVIDERS: ATTEND Internal Medicine
DX: Z20.828 Contact with and (suspected) exposure to other viral communicable diseases (principal)

== ENCOUNTER → 2020-07-27 | Outpatient (CLI) | payer OTHER ==
[~2020-07-27] VITALS: Ht 152.4 cm; Wt 90.0 kg
[2020-07-27 07:16] VITALS: BP 128/87
--- NOTE | 2020-07-27 09:13 | CATHLAB ---
[facility] [place] [address] INVASIVE PROCEDURE REPORT Name: HUDSON LINTON Room #: [facility].#: [id number] Admission: 07/27/20 Attend Phys: Art Pierson MD, Discharge: Date of : 59 Report #: [id number] THIS REPORT FOR: cc: Alvarez Hickman,Art Mcbride MD [facility] ~ APPROVED REPORT Study performed: 07/27/2020 07:35:31 Patient Details Patient Status: In-Patient Room #: The patient is a 64 year-old female Event Personnel Art Pierson Drop Worker, Eben Ragland RN RN, Seda Amador Monitor, Zack Lopez RTR Scrub Procedures Performed Art Access - R femoral artery* Left Heart Cath w/or w/o Coronaries [id number] [facility] [address]35 Initial Mod Sed Same Phys/QHP Gr5y 618283 21880 Mod Sed Same Phys/QHP Ea 104146 Hemostasis w/ Mynx Indication Chest pain Procedure Narrative The patient was brought electively to the Cardiac Catheterization Laboratory and was prepped and draped in a sterile manner. The Right Groin^ was infiltrated with 1% Lidocaine subcutaneous anesthesia. A PINNACLE 6FR Sheath #[id number] sheath was inserted into the RFA 6F^. Coronary angiography was performed using coronary diagnostic catheters. The right coronary system was accessed and visualized with a JR4 catheter. The left coronary system was accessed and visualized with a JL4 catheter. The left ventricle was accessed and visualized with a ANGLE PIG catheter. Left ventriculogram was performed in 30 degree projection. There was no hematoma. Intraoperative Conscious Sedation Sedation start time: 808 Case end Time: 829 Fentanyl 50 mcg Versed 1 mg Fluoro Time: 1.10 minutes [facility] [place] [place] [address] INVASIVE PROCEDURE REPORT Name: SHAILAHUDSON Room #: [facility]#: [id number] Admission: 07/27/20 Attend Phys: Art Pierson, Discharge: Date of : 59 Report #: [id number] Dose: DAP 4369.90 cGycm2 586 mGy Contrast Type and Amount: Omnipaque 90 ml Coronary Angiography The patient's coronary anatomy is right dominant. Diagnostic Cath Left Main Normal left main LAD Normal left anterior descending Diagonal 1 Small first diagonal branch, normal Diagonal 2 Small second diagonal branch, normal Circumflex Normal circumflex OM1 Distally rising marginal branch, normal Right Coronary Dominant right coronary, normal R PDA Normal posterior descending branch Ramus Large ramus branch, angiographically normal Left Ventriculography The left ventricle is mild to moderately dilated in size with abnormal contractility. The left ventricular ejection fraction is estimated to be 20-25%. Left ventricular wall motion abnormalities are present. There is no mitral insufficiency. Mild left ventricular enlargement with severe global left ventricular dysfunction Hemodynamics The aortic pressure is 164/87 mmHg with a mean of 109 mmHg. The left ventricular pressure is 136/14 mmHg with a mean of mmHg. The left ventricular end diastolic pressure is 25 mmHg. Conclusion 1. Severe left ventricular dysfunction. EF 20-25% 2. Normal left main 3. Normal coronary vasculature. Right coronary dominant circulation <ELECTRONICALLY SIGNED> By: Art Pierson MD, FACC 07/27/20912 2 2 Art Pierson MD, FACC /INF
== END | disposition home or self-care (01) ==
LOC: CATH 06:55
PROVIDERS: ATTEND Internal Medicine
DX: R07.9 Chest pain, unspecified (principal); I11.0 Hypertensive heart disease with heart failure; I50.1 Left ventricular failure, unspecified; I42.9 Cardiomyopathy, unspecified; E11.9 Type 2 diabetes mellitus without complications; J45.909 Unspecified asthma, uncomplicated; E78.5 Hyperlipidemia, unspecified; Z98.890 Other specified postprocedural states; Z79.899 Other long term (current) drug therapy; Z79.4 Long term (current) use of insulin; Z85.3 Personal history of malignant neoplasm of breast; Z86.73 Personal history of transient ischemic attack (TIA), and cerebral infarction without residual deficits